=== PATIENT | female | born 1975 | race Caucasian/White ===

== ENCOUNTER 2016-04-29 17:31 | Emergency (ER) | payer MEDICAID, OTHER ==
[2016-04-29] MEDS ORDERED: DIPHTH,PERTUSS(ACELL),TET VAC 0.5 ML VIAL IM V ONE (17:47)
--- NOTE | 2016-04-29 18:18 | RAD ---
Name: BARB CHAVEZ Exam: Right hip Comparison: None Clinical history: Puncture wound Findings: 3 views right hand are submitted. Bone density is within normal limits. There is a 1 mm metallic foreign body in the soft tissues adjacent to the PIP joint of the index finger. There is soft tissue swelling at the thenar eminence. Suspicious soft tissue air is not identified. There is no acute fracture. Old fifth metacarpal fracture is suspected. Carpal alignment is normal. Impression: 1. Soft tissue swelling at the thenar eminence and colon the hand. There is no suspicious foreign body or soft tissue air in this region 2. No acute bony abnormality
== END 2016-04-29 19:03 | disposition home or self-care (01) ==
LOC: ED 17:31
DX: S61.431A Puncture wound without foreign body of right hand, initial encounter (principal); Z23 Encounter for immunization; W45.8XXA Other foreign body or object entering through skin, initial encounter; W22.8XXA Striking against or struck by other objects, initial encounter; Y92.79 Other farm location as the place of occurrence of the external cause